=== PATIENT | female | born 1995 | race African-American/Black ===

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

== ENCOUNTER 2017-07-17 16:54 | Emergency (ER) | payer OTHER ==
[~2017-07-17] VITALS: Ht 162.6 cm; Wt 80.0 kg
[~2017-07-17 16:54] MED LIST: AZIT250T3 PO; IBUP1TAB7 PO
[2017-07-17 16:55] VITALS: BP 123/75; PULSE 87; RESP 18; TEMP 98.4; O2SAT 100
[2017-07-17] MEDS ORDERED: ETON1IMP I-DERMAL (17:10)
--- NOTE | 2017-07-17 17:15 | PD ---
HPI Chief Complaint: Chest Pain Time Seen by Provider: 17:04 Travel History International Travel<30 days: No Contact w/Intl Traveler<30days: No Traveled to known affect area: No History of Present Illness HPI This patient was examined in the presence of a female nurse. 22-year-old female presents for evaluation of chest pain. Symptoms started 1 week ago. She describes it as a sharp pain in her upper chest which is reproduced with deep inspiration. She does endorse slight nausea as well. She has been using [id number] Advil however her symptoms have persisted which prompted evaluation. She denies any cough, congestion, rash, fevers, chills, leg swelling, abdominal pain, nausea or vomiting. Denies recent travel or recent surgery. She does report -control the form of nexplanon implant. She has no other complaints at this time. PFSH Past Medical History ?: Not Social History Alcohol Use: No Tobacco Use: No Substance Use: No Allergies-Medications (Allergen,Severity, Reaction): Coded Allergies: acetaminophen (Unverified Allergy, Unknown, 07/17/17) amoxicillin (Unverified Allergy, Unknown, 07/17/17) clavulanic acid (Unverified Allergy, Unknown, 07/17/17) Reported Meds & Prescriptions Reported Meds & Active Scripts Active Reported Nexplanon Implant (Etonogestrel Implant) 68 Mg Imp 68 Mg I-DERMAL ONCE Review of Systems Except as stated in HPI: all other systems reviewed are Neg Physical Exam Narrative GENERAL: Well-developed well-nourished female in no acute distress SKIN: Warm and dry. HEAD: Atraumatic. Normocephalic. EYES: Pupils equal and round. No scleral icterus. No injection or drainage. ENT: No nasal bleeding or discharge. Mucous membranes pink and moist. NECK: Trachea midline. No JVD. CARDIOVASCULAR: Regular rate and rhythm. No murmur appreciated. RESPIRATORY: No accessory muscle use. Clear to auscultation. Breath sounds equal bilaterally. No crackles no wheezing or rhonchi GASTROINTESTINAL: Abdomen soft, non-tender, nondistended. Hepatic and splenic margins not palpable. MUSCULOSKELETAL: No obvious deformities. No edema. Negative Homans. NEUROLOGICAL: Awake and alert. No obvious cranial nerve deficits. Motor grossly within normal limits. Normal speech. PSYCHIATRIC: Appropriate mood and affect; insight and judgment normal. Data Data Last Documented VS Vital Signs Date Time Temp Pulse Resp B/P (MAP) Pulse Ox O2 Delivery O2 Flow Rate FiO2 07/17/17 16:55 98.4 87 18 123/75 (91) 100 Orders Orders Ed Urine Pregnancytest Poc (07/17/17 17:11) Chest, Single Ap (07/17/17 ) Electrocardiogram (07/17/17 ) Ketorolac Inj (Toradol Inj) (07/17/17 17:45) Ed Discharge Order (07/17/17 17:54) MDM Medical Decision Making Medical Screen Exam Complete: Yes Emergency Medical Condition: Yes Medical Record Reviewed: Yes Differential Diagnosis Pleurisy, costochondritis, pericarditis, myocarditis, spontaneous pneumothorax, pulmonary embolism Narrative Course 22-year-old female with pleuritic chest pain for 1 week. She appears well. She is not hypoxic, tachycardic, tachypneic. Oxygen saturation is 1% on room air. I suspect that she has pleurisy. Pulmonary embolism was considered however she has a wells score of 0 and it is considered highly unlikely in this otherwise healthy 22-year-old female. Chest x-ray, urine test, EKG have been ordered. EKG reveals sinus rhythm with arrhythmia, no ischemic changes, no ID depression , chest x-ray reveals no acute abnormalities. The patient was given Toradol for symptoms. Discussed signs and symptoms that would warrant returning to emergency room. She is stable for discharge. Diagnosis Primary Impression: Pleurisy Additional Instructions: Take enxx-gxy-lnjmsrw ibuprofen for pain per dosing instructions on the bottle. Take with meals. Follow-up with primary care physician as needed and return for any acutely new or worsening symptoms. Med/Other Pt SpecificInfo: No Change to Meds Disposition: 01 DISCHARGE HOME Condition: Stable Hernan Landrum Jul 17, 2017 17:15
[2017-07-17] MEDS ORDERED: KETOROLAC TROMETHAMINE 30 MG/ML (IVP) VIAL IV PUSH ONE (17:45)
--- NOTE | 2017-07-17 17:50 | RADRPT ---
EXAM DATE/TIME: 07/17/2017 17:21 [facility] COMPARISON: No previous studies available for comparison. INDICATIONS : Patient complains of left sided chest pain. MEDICAL HISTORY : None. SURGICAL HISTORY : None. ENCOUNTER: Initial ACUITY: 2 days PAIN SCORE: 5/10 LOCATION: Left chest FINDINGS: The lungs are clear without infiltrate, nodule, or mass. There is no appreciable pleural effusion fo r technique. Heart and mediastinum are unremarkable. CONCLUSION: No acute cardiopulmonary disease. Eriberto Ramos MD on July 17, 2017 at 17:47 Board Certified Radiologist. This report was verified electronically.
--- NOTE | 2017-07-17 18:10 | PD ---
Data Data Last Documented VS Vital Signs Date Time Temp Pulse Resp B/P (MAP) Pulse Ox O2 Delivery O2 Flow Rate FiO2 07/17/17 16:55 98.4 87 18 123/75 (91) 100 Orders Orders Ed Urine Pregnancytest Poc (07/17/17 17:11) Chest, Single Ap (07/17/17 ) Electrocardiogram (07/17/17 ) Ketorolac Inj (Toradol Inj) (07/17/17 17:45) Ed Discharge Order (07/17/17 17:54) MDM Supervised Visit with NIHARIKA: Yes Narrative Course 22-year-old young woman with atypical pleuritic chest pain. Looks well. No clear precipitant. I do not think she has a PE. Some minimal URI symptoms. Recommend supportive treatment. Workup negative. Diagnosis Primary Impression: Pleurisy Patient Instructions: General Instructions, Pleurisy (ED) Departure Forms: Tests/Procedures Additional Instruction: Take sctu-xvm-dffvbxf ibuprofen for pain per dosing instructions on the bottle. Take with meals. Follow-up with primary care physician as needed and return for any acutely new or worsening symptoms. Disposition: 01 DISCHARGE HOME Condition: Stable Cabrera Palomo MD Jul 17, 2017 18:10
--- NOTE | 2017-07-18 13:24 | EKG ---
Date Performed: 07/17/2017 Time Performed: 17:30:24 PTAGE: 22 years EKG: Sinus rhythm WITH SINUS ARRHYTHMIA POSSIBLE RIGHT VENTRICULAR CONDUCTION DELAY BORDERLINE ECG NO PREVIOUS TRACING DOCTOR: Doug Teixeira Interpretating Date/Time 07/18/2017 13:22:50
== END 2017-07-17 18:10 | disposition home or self-care (01) ==
LOC: NEPC 16:54
DX: R09.1 Pleurisy (principal)
CPT/HCPCS: 71045; 84703; 93005; 96374; 99284; J1885

== ENCOUNTER 2017-10-11 19:28 | Emergency (ER) | payer OTHER ==
[~2017-10-11] VITALS: Ht 162.6 cm; Wt 75.9 kg
[~2017-10-11 19:28] MED LIST changes: -AZIT250T3 PO; +ETON1IMP I-DERMAL; -IBUP1TAB7 PO
[2017-10-11 19:30] VITALS: BP 138/90; PULSE 86; RESP 18; TEMP 98.8; O2SAT 98
--- NOTE | 2017-10-11 19:38 | PD ---
HPI Chief Complaint: ENT Complaint Time Seen by Provider: 19:36 Travel History International Travel<30 days: No Contact w/Intl Traveler<30days: No Traveled to known affect area: No History of Present Illness HPI Examined in the presence of a female nurse. 22-year-old female here with sore throat. Symptoms started 2 days ago. Hurts to swallow. Denies rash, cough, congestion, fevers or chills. No sick contacts. No other complaints. PFSH Past Medical History ?: Not Social History Alcohol Use: No Tobacco Use: No Substance Use: No Allergies-Medications (Allergen,Severity, Reaction): Coded Allergies: acetaminophen (Unverified Allergy, Unknown, 10/11/17) amoxicillin (Unverified Allergy, Unknown, 10/11/17) clavulanic acid (Unverified Allergy, Unknown, 10/11/17) Reported Meds & Prescriptions Reported Meds & Active Scripts Active Reported Nexplanon Implant (Etonogestrel Implant) 68 Mg Imp 68 Mg I-DERMAL ONCE Review of Systems General / Constitutional: No: Fever, Chills HENT: Positive: Sore Throat, No: Congestion Respiratory: No: Cough Physical Exam Narrative GENERAL: Well developed well-nourished female no acute distress SKIN: Warm and dry. HEAD: Atraumatic. Normocephalic. EYES: Pupils equal and round. No scleral icterus. No injection or drainage. ENT: No nasal bleeding or discharge. Mucous membranes pink and moist. Mild oral pharyngeal erythema without exudate. NECK: Trachea midline. No JVD. No lymphadenopathy. CARDIOVASCULAR: Regular rate and rhythm. No murmur appreciated. RESPIRATORY: No accessory muscle use. Clear to auscultation. Breath sounds equal bilaterally. Data Data Last Documented VS Vital Signs Date Time Temp Pulse Resp B/P (MAP) Pulse Ox O2 Delivery O2 Flow Rate FiO2 10/11/17 19:30 98.8 86 18 138/90 (106) 98 Orders Orders Group A Rapid Strep Screen (10/11/17 19:36) Strep Culture (Group A) (10/11/17 19:35) Ibuprofen (Motrin) (10/11/17 20:45) Ed Discharge Order (10/11/17 20:36) MDM Medical Decision Making Medical Screen Exam Complete: Yes Emergency Medical Condition: Yes Medical Record Reviewed: Yes Differential Diagnosis Pharyngitis, tonsillitis, peritonsillar abscess, infectious mononucleosis, herpangina, epiglottitis Narrative Course 22-year-old female with sore throat. She appears well. Rapid strep screen was performed and is negative. She appears to have a viral pharyngitis. She will be discharged with Magic mouthwash. Diagnosis Primary Impression: Pharyngitis Additional Instructions: Medication as needed. Can take oyek-ipf-bvcwhfy ibuprofen every 6 hours as needed for pain. Stay well hydrated and well-nourished. Return for any emergent medical conditions. Med/Other Pt SpecificInfo: Prescription(s) given Scripts Rkltselg-Drbddxqefvyqxzq-Mbjbymjqu Liq (Magic Mouthwash Adult Liq) 120 Ml Susp 10 ML SWISH-SPIT ACHS for Mouth sores, #120 ML 0 Refills Each 5mL contains: Nystatin 200,000units, Diphenhydramine 4.25mg, Viscous Lidocaine 10mg, [place] syrup 0.8 mL Prov: Dominga Kelsey MD 10/11/17 Disposition: DISCHARGE HOME Condition: Stable Hernan Landrum Oct 11, 2017 19:38
[2017-10-11] MEDS ORDERED: MAGICADU2 SWISH-SPIT (20:37)
[2017-10-11] MEDS ORDERED: IBUPROFEN 800 MG TAB PO ONE (20:45)
== END 2017-10-11 20:51 | disposition home or self-care (01) ==
LOC: NEPK 19:28
DX: J02.9 Acute pharyngitis, unspecified (principal)
CPT/HCPCS: 87081; 87880; 99283